=== PATIENT | female | born 1990 | race Caucasian/White ===

== ENCOUNTER → 2017-11-04 | Outpatient (CLI) | payer OTHER | LOC: COL.VAS 13:18 | DX: R01.1 Cardiac murmur, unspecified (principal) ==

== ENCOUNTER 2018-10-11 02:26 | Emergency (ER) | payer OTHER ==
[~2018-10-11] VITALS: Ht 172.7 cm; Wt 95.5 kg
[~2018-10-11 02:26] MED LIST: AMOXICILLIN 50500 MG PO; FLONASE0.05 MG/AC NS; MULTIPLE VITAMI1 CAP PO; TRINESSA1 TAB PO; ZYRTEC
[2018-10-11 02:31] VITALS: TEMP 97.7
[2018-10-11 03:26] LABS: BASO % 0.5 % (0.0-2.0); EOS # 0.2 (0.0-0.7); GRAN # 4.1 (1.4-6.5); GRAN % 54.3 % (42.2-75.2); HEMATOCRIT 37.5 % (37.0-47.0); HEMOGLOBIN 12.4 g/dl (12.5-16.0); LYMPH # 2.6 (1.2-3.4); LYMPH % 34.3 % (20.0-51.0); MEAN CELL VOLUME 89 fl (80.0-100.0); MEAN CORPUSCULAR HEMOGLOBIN 30 pg (27.0-31.0); MEAN CORPUSCULAR HGB CONC 33 g/dl (33.0-37.0); MEAN PLATELET VOLUME 10.4 fl (7.4-10.4); MONO # 0.6 (0.1-0.6); MONO % 7.8 % (1.7-9.3); PLATELET COUNT 275 K/mm3 (130-400); RED BLOOD COUNT 4.21 M/mm3 (4.10-5.30); REDCELL DISTRIBUTION WIDTH-CV 12.2 % (11.5-14.5)
[2018-10-11] MEDS ORDERED: INDERAL60 MG PO (03:32)
[2018-10-11 03:42] LABS: ALBUMIN 4.4 gm/dL (3.5-5.0); BILIRUBIN,TOTAL 0.5 mg/dL (0.0-1.0); CALCIUM 9.5 mg/dL (8.4-10.2); CREATININE, serum 0.66 (0.52-1.25); TOTAL PROTEIN 8.1 gm/dL (6.4-8.2)
[2018-10-11 04:33] LABS: COLLECTION METHOD CLEAN CATCH
[2018-10-11 04:47] LABS: MUCOUS Present /lpf; PH 5 (5-8); URINE APPEARANCE Hazy; URINE BACTERIA None Seen /hpf; URINE BILIRUBIN Negative (NEGATIVE); URINE BLOOD 2+ (NEGATIVE); URINE COLOR Yellow; URINE GLUCOSE Negative (NEGATIVE); URINE KETONE Negative (NEGATIVE); URINE LEUKOCYTE ESTERASE Negative (NEGATIVE); URINE NITRATE Negative (NEGATIVE); URINE PROTEIN(semi-quant) Negative (NEGATIVE); URINE RBC 20-50 /hpf; URINE UROBILINOGEN Negative (NEGATIVE)
[2018-10-11] MEDS ORDERED: ZOFRAN ODT4 MG PO (05:56)
[2018-10-11] MEDS ORDERED: NORCO 325 MG-51 TAB PO (05:56)
[2018-10-11 06:34] VITALS: BP 124/84; PULSE 84
== END 2018-10-11 06:36 | disposition home or self-care (01) ==
LOC: COL.ER 02:26
PROVIDERS: Emergency Medicine
DX: N13.2 Hydronephrosis with renal and ureteral calculous obstruction (principal); N13.4 Hydroureter; D36.9 Benign neoplasm, unspecified site; Z90.49 Acquired absence of other specified parts of digestive tract; Z87.440 Personal history of urinary (tract) infections
CPT/HCPCS: J1170; J1885; J2405; J3010; J7030; Q9967